=== PATIENT | female | born 2000 | race African-American/Black ===

== ENCOUNTER 2023-11-05 12:25 | Emergency (ER) | payer OTHER ==
[2023-11-05 12:42] VITALS: BP 153/63; O2SAT 100
--- NOTE | 2023-11-05 13:11 | ED Physician Documentation ---
PD HPI MALE - Stated complaint Stated Complaint: - Chief complaint Chief Complaint: Abd Pain - History obtained from History obtained from: Patient - History of Present Illness Timing - onset: How many weeks ago (3) Timing - duration: Weeks (3) Timing - details: Gradual onset, Still present Associated symptoms: Discharge, Abdominal pain (mild cramping). No: Dysuria, Genital sore / lesion PD HPI MALE CONTRIB FACTORS: Sexually active, Exposed to STD (has had discharge vaginally since soon after sexual activity with occasional partner few weeksa go and is concerned about STI. No itching.) Similar symptoms before: Has not had sx before Review of Systems Constitutional: denies: Fever, Chills Skin: denies: Rash, Lesions PD PAST MEDICAL HISTORY - Past Medical History Past Medical History: No Cardiovascular: None Respiratory: None Neuro: None Endocrine/Autoimmune: None GI: None ADMINISTRATIVE OFFICER: Other (post hysterectomy, in transition hormonally. ) : None HEENT: None Psych: None Musculoskeletal: None Derm: None - Past Surgical History Past Surgical History: Yes - Present Medications Home Medications: Ambulatory Orders Medication Instructions Recorded Confirmed Testosterone [Androgel] 2.5 gm TD HS 11/05/23 11/05/23 - Allergies Allergies/Adverse Reactions: Allergies Allergy/AdvReac Type Severity Reaction Status Date / Time No Known Drug Allergies Allergy Verified 11/05/23 12:38 - Social History Does the pt smoke?: No Smoking Status: Never smoker Does the pt drink ETOH?: No Does the pt have substance abuse?: No Results - Vitals Vitals: Vital Signs - 24 hr 11/05/23 12:31 Temperature 37 C Heart Rate 72 Respiratory 16 Rate Blood Pressure 153/63 H O2 Saturation 100 Oxygen O2 Source Room air - Labs Labs: Laboratory Tests 11/05/23 14:00 C. glabrata (PCR) NEGATIVE C. krusei (PCR) NEGATIVE Alyssa species DNA NEGATIVE T. vaginalis (PCR) NEGATIVE Bact Vaginosis (PCR) NEGATIVE PD Medical Decision Making - ED course Complexity details: re-evaluated patient (Given rocpehin and Azithromax for treatment of GC/chdlamydia. ), considered differential (symptoms and timing concerning for STI, and discussion with pt concluded to treat empirically since here with [facility]. Getting vaginal tests for STI and BV.), d/w patient Departure - Departure Disposition: 01 Home, Self Care Clinical Impression: Possible exposure to STI Condition: Stable Instructions: Vaginal Infec Comments: You are given ceftriaxone and azithromycin doses here in the ER. This would cover for the main STIs of GC and chlamydia. We did do swab tests/PCR to assess for those as well as yeast or bacterial vaginitis. They will result later today or tomorrow. Will call if you are positive for any results. Meanwhile given your symptoms, you are covered for the main STIs as sounding fairly likely with your symptoms. The doses here should be sufficient. However you can get a repeat testing in 3 to 4 weeks to ensure it is fully cleared or if you are certainly having any persisting symptoms. Tylenol ibuprofen as needed. Forms: PCP List Discharge Date/Time: 11/05/23 14:25
[2023-11-05] MEDS: LIDOCAINE 1% 2 ML VIAL MC ONE (14:07)
[2023-11-05] MEDS: AZITHROMYCIN 250 MG TABLET PO STA (14:07)
[2023-11-05] MEDS: cefTRIAXone 1 GM VIAL IM STA (14:07)
[2023-11-05] MEDS: ONDANSETRON ODT 4 MG TABLET TL STA (14:09)
[2023-11-05 16:39] LABS: BACTERIAL VAGINOSIS DNA NEGATIVE (NEGATIVE); CANDIDA GLABRATA DNA NEGATIVE (NEGATIVE); CANDIDA GROUP DNA NEGATIVE (NEGATIVE); CANDIDA KRUSEI DNA NEGATIVE (NEGATIVE); TRICHOMONAS VAGINALIS DNA NEGATIVE (NEGATIVE)
[2023-11-05 21:19] LABS: CHLAMYDIA TRACHOMATIS DNA NEGATIVE (NEGATIVE); NEISSERIA GONORRHOEAE DNA NEGATIVE (NEGATIVE); TRICHOMONAS VAGINALIS DNA NEGATIVE (NEGATIVE)
== END 2023-11-05 14:25 | disposition home or self-care (01) ==
LOC: EDSEX → ED 12:25
DX: R10.9 Unspecified abdominal pain (principal); N89.8 Other specified noninflammatory disorders of vagina
CPT/HCPCS: 81514; 87491; 87591; 87661; 96372; 99283; A9270; Q0162